=== PATIENT | male | born 1965 | race Caucasian/White ===

== ENCOUNTER 2023-03-16 14:17 | Emergency (ER) | payer OTHER ==
[~2023-03-16] VITALS: Ht 167.6 cm; Wt 73.5 kg
[2023-03-16] MEDS ORDERED: ACETAMINOPHEN ES 500 MG TABLET ONE (17:21)
[2023-03-16] MEDS ORDERED: ACETAMINOPHEN ES 500 MG TABLET PO ONE (17:30)
[2023-03-16 18:14] VITALS: BP 120/85; TEMP 98.7; O2SAT 98
== END 2023-03-16 18:00 | disposition home or self-care (01) ==
LOC: ER 14:27
DX: F10.129 Alcohol abuse with intoxication, unspecified (principal); M79.605 Pain in left leg; M79.604 Pain in right leg; Z60.2 Problems related to living alone; Y90.9 Presence of alcohol in blood, level not specified